=== PATIENT | female | born 1970 | race Caucasian/White ===

== ENCOUNTER 2017-12-05 12:01 | Emergency (ER) | payer SELFPAY ==
[2017-12-05 12:45] VITALS: BP 121/67
--- NOTE | 2017-12-05 12:53 | UC ---
Skin Complaint HPI - HPI Summary HPI Summary: 47 yo female presents with redness, pain, and swelling to right middle finger at nail. She says that she noticed this begin 2-3 days ago and has progressed in redness, pain, and swelling. She admits that she bites her nails sometimes. Has not been soaking it or applying anything OTC to it. Denies fever or chills. - History of Current Complaint Chief Complaint: UCSkin Time Seen by Provider: 12/05/17 12:53 Stated Complaint: RED SWOLLEN FINGER Hx Obtained From: Patient Onset/Duration: Gradual Onset Onset Severity: Mild Current Severity: Moderate Pain Intensity: 8 Pain Scale Used: 0-10 Numeric - Allergy/Home Medications Allergies/Adverse Reactions: Allergies Allergy/AdvReac Type Severity Reaction Status Date / Time No Known Allergies Allergy Verified 12/05/17 12:45 Review of Systems Constitutional: Negative Skin: Other - Right middle finger paronychia Respiratory: Negative Cardiovascular: Negative Neurovascular: Negative Musculoskeletal: Negative Neurological: Negative Psychological: Negative All Other Systems Reviewed And Are Negative: Yes PMH/Surg Hx/FS Hx/Imm Hx GI/ History: Gastroesophageal Reflux - Surgical History Surgical History: Yes Surgery Procedure, Year, and Place: ORAL SURGERY, GALLBLADDER - Family History Known Family History: Positive: Cardiac Disease - Social History Occupation: Employed Full-time Lives: With Family Alcohol Use: None Substance Use Type: None Smoking Status (MU): Never Smoked Tobacco Physical Exam - Summary Physical Exam Summary: GENERAL: NAD. WDWN. No pain distress. SKIN: RIGHT MIDDLE FINGER: Paronychia to unlar aspect of nail-skin fold with moderate edema and surround erythema. No streaking, bleeding, or active drainage. NECK: Supple. Nontender. No lymphadenopathy. CHEST: No accessory muscle use. Breathing comfortably and in no distress. CV: Pulses intact. Cap refill <2seconds NEURO: Alert. PSYCH: Age appropriate behavior. Triage Information Reviewed: Yes Vital Signs: Initial Vital Signs Temp 97.1 F 12/05/17 12:39 Pulse 53 12/05/17 12:39 Resp 18 12/05/17 12:39 BP 121/67 12/05/17 12:39 Pulse Ox 98 12/05/17 12:39 Vital Signs Reviewed: Yes Course/Dx - Course Course Of Treatment: Paronychia right middle finger. A time out was performed, signed, and witnessed. The area was cleansed with an alcohol pad. A 22G needle was used to aj the area and moderate purulent matter was able to be expressed. Pt tolerated well. - Diagnoses Provider Diagnoses: Paronychia right middle finger Discharge - Sign-Out/Discharge Documenting (check all that apply): Patient Departure All imaging exams completed and their final reports reviewed: No Studies - Discharge Plan Condition: Stable Disposition: HOME Prescriptions: Cephalexin CAP* [Keflex CAP*] 500 mg PO TID #21 cap Patient Education Materials: Paronychia (ED) Referrals: Abbey Conklin MD [Primary Care Provider] - Additional Instructions: If you develop a fever, shortness of breath, chest pain, new or worsening symptoms - please call your PCP or go to the ED. - Billing Disposition and Condition Condition: STABLE Disposition: Home
== END 2017-12-05 13:11 | disposition home or self-care (01) ==
LOC: UCEAST 12:01
DX: L03.011 Cellulitis of right finger (principal)
CPT/HCPCS: 10060; 99212; G0463

== ENCOUNTER 2018-10-15 19:47 | Emergency (ER) | payer BC ==
--- OUTSIDE RECORDS SUMMARY | 2018-10-15 19:57 | XMS REPORT | Summary of Care ---
:1970 Author Organization [facility] Address [address] [address] Care Team Providers Name Role Phone Abbey Conklin MD Primary Care Provider Reason for Visit Reason Comments Sinusitis c/o sinus and chest congestion x1 week with nonproductive cough. Encounter Details Date Type Department Care Team Description 10/06/2018 Office Visit [place] [facility] Carlos Patiño MD Acute bronchitis, Medicine [address] [facility] unspecified organism [address] [place] [address] (Primary Dx) [place] [address] [phone] Allergies No Known Allergiesdocumented as of this encounter (statuses as of 10/15/2018) Medications Medication Sig Dispensed Refills Start Date End Date Status benzonatate (TESSALON Take 1 Cap by 30 Cap 1 01/17/2017 Active PERLES) 100 MG Oral Cap mouth THREE TIMES DAILY NEEDED for cough. ibuprofen (MOTRIN) 600 TAKE ONE TABLET 60 Tab 1 03/10/2017 Active MG Oral Tab BY MOUTH EVERY 8 HOURS NEEDED FOR PAIN famotidine (PEPCID) 20 TAKE ONE TABLET 60 Tab 5 12/29/2017 Active MG Oral Tab BY MOUTH TWICE A DAY Azithromycin 500 MG Take 1 Tab by 5 Tab 0 10/06/2018 Active Oral Tab mouth DAILY. documented as of this encounter (statuses as of 10/15/2018) Active Problems Problem Noted Date BMI 40.0-44.9, adult 10/07/2010 GERD (gastroesophageal reflux disease) Overview: EGD 04/23/13. Negative Sabine test documented as of this encounter (statuses as of 10/15/2018) Resolved Problems Problem Noted Date Resolved Date Menometrorrhagia 05/07/2013 07/19/2013 Uterine fibroid 09/30/2011 07/19/2013 documented as of this encounter (statuses as of 10/15/2018) Immunizations Name Administration Dates Next Due TDAP Vaccine 05/30/2016 documented as of this encounter Social History Tobacco Use Types Packs/Day Years Used Date Never Smoker Smokeless Tobacco: Never Used Alcohol Use Drinks/Week oz/Week Comments No 0 Standard drinks or equivalent 0.0 Sex Assigned at Date Recorded Not on file Job Start Date Occupation Industry Not on file Not on file Not on file Travel History Travel Start Travel End No recent travel history available. documented as of this encounter Last Filed Vital Signs Vital Sign Reading Time Taken Comments Blood Pressure 118/72 10/06/2018 10:20 AM EDT Pulse 58 10/06/2018 10:20 AM EDT Temperature 37.3 10/06/2018 10:20 AM EDT C (99.1 F) Respiratory Rate 18 10/06/2018 10:20 AM EDT Oxygen Saturation 97% 10/06/2018 10:20 AM EDT Inhaled Oxygen Concentration - - Weight 112 kg (247 lb) 10/06/2018 10:20 AM EDT Height 160 cm (5' 3") 10/06/2018 10:20 AM EDT Body Mass Index 43.75 10/06/2018 10:20 AM EDT documented in this encounter Patient Instructions Patient InstructionsCarlos Patiño MD - 10/06/2018 10:20 AM EDTContinue same medicines, but also take azithromycin 500 mg a day for 5 days Rest and drink plenty of fluids. Call if not improving. documented in this encounter Progress Notes Carlos Patiño MD - 10/06/2018 10:20 AM EDT PATIENT: Elvira Marrufo : 1970 DATE OF SERVICE: 10/06/2018 CHIEF COMPLAINT: Chief Complaint Patient presents with Sinusitis c/o sinus and chest congestion x1 week with nonproductive cough. Subjective HISTORY OF PRESENT ILLNESS: Elvira Marrufo is a 48-y.o. female. HPI Complaining of a week long history of cough, rhinorrhea, chest steven, lo gr fever. No GI upset Past Medical History: Diagnosis Date GERD (gastroesophageal reflux disease) EGD 04/23/13. Negative Sabine test Menometrorrhagia 05/07/2013 Obesity Ovarian cyst Postmenopausal Family History Problem Relation Age of Onset Cancer Father lung - smoker Cancer Maternal Aunt breast cancer Breast Cancer Maternal Aunt Heart Unknown Grand parents Stroke Unknown Grand parents Current Outpatient Medications Medication Sig benzonatate (TESSALON PERLES) 100 MG Oral Cap Take 1 Cap by mouth THREE TIMES DAILY NEEDEDfor cough. famotidine (PEPCID) 20 MG Oral Tab TAKE ONE TABLET BY MOUTH TWICE A DAY ibuprofen (MOTRIN) 600 MG Oral Tab TAKE ONE TABLET BY MOUTH EVERY 8 HOURS NEEDED FOR PAIN No current facility-administered medications for this visit. No Known Allergies Social History Socioeconomic History Marital status: Single Spouse name: Not on file Number of children: Not on file Years of education: Not on file Highest education level: Not on file Occupational History Not on file Social Needs Financial resource strain: Not on file Food insecurity: Worry: Not on file Inability: Not on file Transportation needs: Medical: Not on file Non-medical: Not on file Tobacco Use Smoking status: Never Smoker Smokeless tobacco: Never Used Substance and Sexual Activity Alcohol use: No Alcohol/week: 0.0 standard drinks Drug use: No Sexual activity: Yes Partners: Male control/protection: Other Lifestyle Physical activity: Days per week: Not on file Minutes per session: Not on file Stress: Not on file Relationships Social connections: Talks on phone: Not on file Gets together: Not on file Attends oriental orthodox service: Not on file Active member of club or organization: Not on file Attends meetings of clubs or organizations: Not on file Relationship status: Not on file Intimate partner violence: Fear of current or ex partner: Not on file Emotionally abused: Not on file Physically abused: Not on file Forced sexual activity: Not on file Other Topics Concern Not on file Social History Narrative Not on file REVIEW OF SYSTEMS: Review of Systems Constitutional: Positive for fever and malaise/fatigue. HENT: Positive for congestion and sore throat. Eyes: Negative. Respiratory: Positive for cough. Cardiovascular: Positive for chest pain (w cough). Gastrointestinal: Negative for abdominal pain and diarrhea. Genitourinary: Negative. Objective PHYSICAL EXAM: VITALS: BP 118/72 (BP Location: Right arm, Patient Position: Sitting) | Pulse 58 | Temp 99.1 F (37.3 C) | Resp 18 | Ht 5' 3" (1.6 m) | Wt 247 lb ( 112 kg) | LMP 04/23/2013 | SpO2 97% | BMI 43.75 kg/m Body mass index is 43.75 kg/m. Physical Exam Alert, oriented, in no acute distress. Vitals as above. HEENT: Normocephalic, atraumatic. GERMAINE, EOMI. Mouth and ears unremarkable. Neck: No palpable lymphadenopathy in the submandibular, submental, anterior cervical, posterior cervical, or occipital chains, nor in the supraclavicular spaces. No JVD, thyromegaly. LUNGS: clear. HEART: Regular rate and rhythm. ABDOMEN: positive bowel sounds, soft, nontender, no hepatosplenomegaly, masses or bruits. EXTREMITIES: no cyanosis, clubbing, or edema. ASSESSMENT / IMPRESSION: ICD-9-CM ICD-10-CM 1. Acute bronchitis, unspecified organism 466.0 J20.9 Patient Instructions Continue same medicines, but also take azithromycin 500 mg a day for 5 days Rest and drink plenty of fluids. Call if not improving. Author: Carlos Patiño MD 10/06/2018 11:07 documented in this encounter Plan of Treatment Health Maintenance Due Date Last Done Comments DEPRESSION SCREENING 1984 DIABETES SCREENING 1990 LIPID DISORDER SCREENING 10/27/2016 10/28/2011 MAMMOGRAM (SCREENING) 07/28/2018 07/28/2017, 06/01/2016, 04/01/2015, Additional history exists INFLUENZA VACCINE (#1) 2018 HPV IMMUNIZATION SERIES Aged Out No longer eligible based on patient's age to complete this topic MENINGOCOCCAL VACCINE IMM Aged Out No longer eligible based on patient's age to complete this topic PNEUMOCOCCAL 0-64 YRS Aged Out No longer eligible based on patient's age to complete this topic documented as of this encounter Results Not on filedocumented in this encounter Visit Diagnoses Diagnosis Acute bronchitis, unspecified organism - Primary documented in this encounter Insurance Payer Benefit Plan / Subscriber ID Effective Dates Phone Address Type Group BCBS NATIONAL BCBS NATIONAL xxxxxxxxxxxxxxx 2015-Jose Blue t Cross/Blue Shield (Home) [facility] [phone] [place], [place] (Work) [id number] documented as of this encounter Advance Directives Code Status Date Activated Date Inactivated Comments Full Code 05/15/2013 6:46 AM 05/16/2013 8:09 PM Does patient have decision making capacity? yes Order discussed with: Patient I discussed all options and patient/surrogate requested and agreed to: Other (full code)
[2018-10-15 20:17] VITALS: BP 127/75
[2018-10-15] MEDS ORDERED: Tobramycin 0.3% OPHTH.SOL* 5 ML BOT (regular eye drops) RIGHT EYE ONE (20:25)
--- NOTE | 2018-10-15 20:26 | UC ---
Eye Complaint HPI - HPI Summary HPI Summary: 48-year-old woman comes in with chief complaint of right eye irritation. Been going on for several days. It's worse at night. Feels itchy she does get some eye discharge on the right. No known trauma does not wear contacts. - History of Current Complaint Chief Complaint: UCEye Stated Complaint: RT EYE ITCHING, HURTING Time Seen by Provider: 10/15/18 20:14 Hx Last Menstrual Period: partial hyst Pain Intensity: 0 - Allergies/Home Medications Allergies/Adverse Reactions: Allergies Allergy/AdvReac Type Severity Reaction Status Date / Time No Known Allergies Allergy Verified 10/15/18 20:14 Home Medications: Home Medications NK [No Home Medications Reported] 10/15/18 [History Confirmed 10/15/18] PMH/Surg Hx/FS Hx/Imm Hx Previously Healthy: Yes - Surgical History Surgical History: Yes Surgery Procedure, Year, and Place: ORAL SURGERY, GALLBLADDER - Family History Known Family History: Positive: Cardiac Disease - Social History Alcohol Use: None Substance Use Type: None Smoking Status (MU): Never Smoked Tobacco Review of Systems All Other Systems Reviewed And Are Negative: Yes Constitutional: Positive: Negative Skin: Positive: Negative Eyes: Positive: Drainage, Other - SEE HPI ENT: Positive: Negative Respiratory: Positive: Negative Cardiovascular: Positive: Negative Gastrointestinal: Positive: Negative Motor: Positive: Negative Neurovascular: Positive: Negative Musculoskeletal: Positive: Negative Neurological: Positive: Negative Psychological: Positive: Negative Is Patient Immunocompromised?: No Physical Exam Triage Information Reviewed: Yes Appearance: Well-Appearing, No Pain Distress, Well-Nourished Vital Signs: Initial Vital Signs Temp 97.5 F 10/15/18 20:15 Pulse 66 10/15/18 20:15 Resp 18 10/15/18 20:15 BP 127/75 10/15/18 20:15 Pulse Ox 99 10/15/18 20:15 Vital Signs Reviewed: Yes Eyes: Positive: Conjunctiva Inflamed - MINIMAL RIGHT, Discharge - CLEAR RIGHT Eye Complaint Course/Dx - Course Course Of Treatment: No obvious abnormality in the eye at this time. Will treat as conjunctivitis due to the discharge and irritation. Plan is to have the patient follow-up with her athletic monitor if not completely improved. Reevaluate sooner if worse. - Differential Dx/Diagnosis Provider Diagnosis: Irritation of right eye Discharge - Sign-Out/Discharge Documenting (check all that apply): Patient Departure All imaging exams completed and their final reports reviewed: No Studies - Discharge Plan Condition: Stable Disposition: HOME Patient Education Materials: Conjunctivitis (ED) Referrals: Abbey Conklin MD [Primary Care Provider] - [facility] [Provider Group] Additional Instructions: FOLLOW UP WITH YOUR HARVESTER OPERATOR. GET RECHECKED SOONER IF YOUR CONDITION WORSENS OR ANY QUESTIONS OR CONCERNS. - Billing Disposition and Condition Condition: STABLE Disposition: Home
== END 2018-10-15 20:39 | disposition home or self-care (01) ==
LOC: UCEAST 19:47
DX: H57.11 Ocular pain, right eye (principal)
CPT/HCPCS: 99212; A9270-GY; G0463